=== PATIENT | male | born 1940 | race Two or more races ===

== ENCOUNTER 2017-12-03 11:00 | Outpatient (CLI) | payer MEDICARE, BC ==
[~2017-12-03 11:00] MED LIST: HYDR1TAB; PREG25CA
== END 2017-12-03 23:59 | disposition home or self-care (01) ==
LOC: WOU 11:00
PROVIDERS: ATTEND Podiatrist Foot & Ankle Surgery
DX: S91.114A Laceration without foreign body of right lesser toe(s) without damage to nail, initial encounter (principal); B35.3 Tinea pedis; L85.1 Acquired keratosis [keratoderma] palmaris et plantaris; M79.672 Pain in left foot; M79.671 Pain in right foot; G60.9 Hereditary and idiopathic neuropathy, unspecified; Z89.421 Acquired absence of other right toe(s); Z98.890 Other specified postprocedural states; I10 Essential (primary) hypertension; Z87.891 Personal history of nicotine dependence; X58.XXXA Exposure to other specified factors, initial encounter; Y92.89 Other specified places as the place of occurrence of the external cause
CPT/HCPCS: 12001; A6253; A6402

== ENCOUNTER 2017-12-17 12:53 | Outpatient (CLI) | payer MEDICARE, BC | END 2017-12-17 23:59 | disposition home or self-care (01) | LOC: WOU 12:53 | PROVIDERS: ATTEND Podiatrist Foot & Ankle Surgery | DX: S91.114A Laceration without foreign body of right lesser toe(s) without damage to nail, initial encounter (principal); X58.XXXA Exposure to other specified factors, initial encounter; Y92.89 Other specified places as the place of occurrence of the external cause; G60.9 Hereditary and idiopathic neuropathy, unspecified; B35.3 Tinea pedis; L85.1 Acquired keratosis [keratoderma] palmaris et plantaris; T81.30XD Disruption of wound, unspecified, subsequent encounter; M79.671 Pain in right foot; M79.672 Pain in left foot; Z87.891 Personal history of nicotine dependence; E78.5 Hyperlipidemia, unspecified; I10 Essential (primary) hypertension; Z89.421 Acquired absence of other right toe(s) | CPT/HCPCS: 11042; A6402 ==

== ENCOUNTER 2017-12-24 13:00 | Outpatient (CLI) | payer MEDICARE, BC | END 2017-12-24 23:59 | disposition home or self-care (01) | LOC: WOU 13:00 | PROVIDERS: ATTEND Podiatrist Foot & Ankle Surgery | DX: S91.114A Laceration without foreign body of right lesser toe(s) without damage to nail, initial encounter (principal); X58.XXXA Exposure to other specified factors, initial encounter; Y99.8 Other external cause status; B35.3 Tinea pedis; L85.1 Acquired keratosis [keratoderma] palmaris et plantaris; G60.9 Hereditary and idiopathic neuropathy, unspecified; M79.672 Pain in left foot; M79.671 Pain in right foot; Z87.891 Personal history of nicotine dependence; Z88.6 Allergy status to analgesic agent; Z88.0 Allergy status to penicillin; E78.5 Hyperlipidemia, unspecified | CPT/HCPCS: 11042; A6402 ==

== ENCOUNTER 2017-12-31 13:40 | Outpatient (CLI) | payer MEDICARE, BC | END 2017-12-31 23:59 | disposition home or self-care (01) | LOC: WOU 13:40 | PROVIDERS: ATTEND Podiatrist Foot & Ankle Surgery | DX: S91.114D Laceration without foreign body of right lesser toe(s) without damage to nail, subsequent encounter (principal); X58.XXXD Exposure to other specified factors, subsequent encounter; B35.3 Tinea pedis; L85.1 Acquired keratosis [keratoderma] palmaris et plantaris; G60.9 Hereditary and idiopathic neuropathy, unspecified | CPT/HCPCS: G0463 ==

== ENCOUNTER → 2018-01-28 | Outpatient (CLI) | payer MEDICARE, BC | END | disposition home or self-care (01) | LOC: WOU 12:45 | PROVIDERS: ATTEND Podiatrist Foot & Ankle Surgery | DX: G60.9 Hereditary and idiopathic neuropathy, unspecified (principal); B35.3 Tinea pedis; L85.1 Acquired keratosis [keratoderma] palmaris et plantaris; M21.612 Bunion of left foot; M21.611 Bunion of right foot; Z89.421 Acquired absence of other right toe(s); M20.42 Other hammer toe(s) (acquired), left foot; M20.41 Other hammer toe(s) (acquired), right foot; I10 Essential (primary) hypertension; E78.5 Hyperlipidemia, unspecified | CPT/HCPCS: G0463; Z7610 ==

== ENCOUNTER 2018-02-15 13:17 | Outpatient (CLI) | payer MEDICARE, BC | END 2018-02-15 23:59 | disposition home or self-care (01) | LOC: WOU 13:17 | PROVIDERS: ATTEND Podiatrist Foot & Ankle Surgery | DX: G60.9 Hereditary and idiopathic neuropathy, unspecified (principal); L85.1 Acquired keratosis [keratoderma] palmaris et plantaris; B35.3 Tinea pedis; Z89.421 Acquired absence of other right toe(s); Z88.6 Allergy status to analgesic agent; Z88.0 Allergy status to penicillin | CPT/HCPCS: A6402; G0463; Z7610 ==

== ENCOUNTER 2018-04-07 13:05 | Outpatient (CLI) | payer MEDICARE, BC | END 2018-04-07 23:59 | disposition home or self-care (01) | LOC: WOU 13:05 | PROVIDERS: ATTEND Podiatrist Foot & Ankle Surgery | DX: S91.114A Laceration without foreign body of right lesser toe(s) without damage to nail, initial encounter (principal); X58.XXXA Exposure to other specified factors, initial encounter; Y92.89 Other specified places as the place of occurrence of the external cause; L85.1 Acquired keratosis [keratoderma] palmaris et plantaris; B35.3 Tinea pedis; M79.672 Pain in left foot; M79.671 Pain in right foot; G62.9 Polyneuropathy, unspecified; E78.5 Hyperlipidemia, unspecified; I10 Essential (primary) hypertension; Z87.891 Personal history of nicotine dependence; Z88.6 Allergy status to analgesic agent; Z88.0 Allergy status to penicillin | CPT/HCPCS: 11042; A6402; Z7610 ==

== ENCOUNTER 2018-04-12 13:54 | Outpatient (CLI) | payer MEDICARE, BC | END 2018-04-12 23:59 | disposition home or self-care (01) | LOC: WOU 13:54 | PROVIDERS: ATTEND Podiatrist Foot & Ankle Surgery | DX: S91.114A Laceration without foreign body of right lesser toe(s) without damage to nail, initial encounter (principal); X58.XXXA Exposure to other specified factors, initial encounter; Y92.89 Other specified places as the place of occurrence of the external cause; L85.1 Acquired keratosis [keratoderma] palmaris et plantaris; B35.3 Tinea pedis; G60.9 Hereditary and idiopathic neuropathy, unspecified; E78.5 Hyperlipidemia, unspecified; Z87.891 Personal history of nicotine dependence; Z88.6 Allergy status to analgesic agent; Z88.0 Allergy status to penicillin | CPT/HCPCS: 11042; A6402; Z7610 ==

== ENCOUNTER 2018-04-19 14:05 | Outpatient (CLI) | payer MEDICARE, BC | END 2018-04-19 23:59 | disposition home or self-care (01) | LOC: WOU 14:05 | PROVIDERS: ATTEND Podiatrist Foot & Ankle Surgery | DX: S91.114A Laceration without foreign body of right lesser toe(s) without damage to nail, initial encounter (principal); X58.XXXA Exposure to other specified factors, initial encounter; Y92.89 Other specified places as the place of occurrence of the external cause; Z87.891 Personal history of nicotine dependence; G60.9 Hereditary and idiopathic neuropathy, unspecified; B35.3 Tinea pedis; L85.1 Acquired keratosis [keratoderma] palmaris et plantaris; Z88.6 Allergy status to analgesic agent; Z88.0 Allergy status to penicillin | CPT/HCPCS: 11042; A6402; Z7610 ==

== ENCOUNTER 2018-04-26 14:10 | Outpatient (CLI) | payer MEDICARE, BC | END 2018-04-26 23:59 | disposition home or self-care (01) | LOC: WOU 14:10 | PROVIDERS: ATTEND Podiatrist Foot & Ankle Surgery | DX: B35.3 Tinea pedis (principal); L85.1 Acquired keratosis [keratoderma] palmaris et plantaris; G60.9 Hereditary and idiopathic neuropathy, unspecified; M20.12 Hallux valgus (acquired), left foot; M20.11 Hallux valgus (acquired), right foot; I10 Essential (primary) hypertension; Z87.891 Personal history of nicotine dependence; Z89.421 Acquired absence of other right toe(s) | CPT/HCPCS: A6402; G0463; Z7610 ==

== ENCOUNTER 2018-07-12 14:15 | Outpatient (CLI) | payer MEDICARE, BC | END 2018-07-12 23:59 | disposition home or self-care (01) | LOC: WOU 14:15 | PROVIDERS: ATTEND Podiatrist Foot & Ankle Surgery | DX: G60.9 Hereditary and idiopathic neuropathy, unspecified (principal); B35.3 Tinea pedis; L85.1 Acquired keratosis [keratoderma] palmaris et plantaris; M20.12 Hallux valgus (acquired), left foot; M20.11 Hallux valgus (acquired), right foot; M21.612 Bunion of left foot; M21.611 Bunion of right foot | CPT/HCPCS: G0463; Z7610 ==

== ENCOUNTER 2018-09-27 13:00 | Outpatient (CLI) | payer MEDICARE, BC | END 2018-09-27 23:59 | disposition home or self-care (01) | LOC: WOU 13:00 | PROVIDERS: ATTEND Podiatrist Foot & Ankle Surgery | DX: G60.9 Hereditary and idiopathic neuropathy, unspecified (principal); B35.3 Tinea pedis; L85.1 Acquired keratosis [keratoderma] palmaris et plantaris; M20.12 Hallux valgus (acquired), left foot; M20.11 Hallux valgus (acquired), right foot; I10 Essential (primary) hypertension | CPT/HCPCS: G0463 ==

== ENCOUNTER 2018-12-23 13:45 | Outpatient (CLI) | payer MEDICARE, BC | END 2018-12-23 23:59 | disposition home or self-care (01) | LOC: WOU 13:45 | PROVIDERS: ATTEND Podiatrist Foot & Ankle Surgery | DX: L85.1 Acquired keratosis [keratoderma] palmaris et plantaris (principal); G60.9 Hereditary and idiopathic neuropathy, unspecified; M21.611 Bunion of right foot; M21.612 Bunion of left foot | CPT/HCPCS: G0463 ==

== ENCOUNTER 2019-03-10 14:12 | Outpatient (CLI) | payer MEDICARE, BC | END 2019-03-10 23:59 | disposition home or self-care (01) | LOC: WOU 14:12 | PROVIDERS: ATTEND Podiatrist Foot & Ankle Surgery | DX: Z09 Encounter for follow-up examination after completed treatment for conditions other than malignant neoplasm (principal); M21.611 Bunion of right foot; M21.612 Bunion of left foot; G60.9 Hereditary and idiopathic neuropathy, unspecified; L85.1 Acquired keratosis [keratoderma] palmaris et plantaris | CPT/HCPCS: G0463 ==

== ENCOUNTER 2019-07-18 13:10 | Outpatient (CLI) | payer MEDICARE, BC | END 2019-07-18 23:59 | disposition home or self-care (01) | LOC: WOU 13:10 | PROVIDERS: ATTEND Podiatrist Foot & Ankle Surgery | DX: L84 Corns and callosities (principal); B35.1 Tinea unguium; G60.9 Hereditary and idiopathic neuropathy, unspecified; M21.611 Bunion of right foot; M21.612 Bunion of left foot | CPT/HCPCS: G0463 ==